=== PATIENT | male | born 1965 | race African-American/Black ===

== ENCOUNTER 2021-07-13 07:00 | Emergency (ER) | payer MEDICAID ==
[~2021-07-13] VITALS: Ht 175.3 cm; Wt 116.0 kg
[2021-07-13] MEDS ORDERED: HYDROCODONE/ACETAMINOPHEN 5/325MG TABLET PO ONE (09:15)
[2021-07-13] MEDS ORDERED: CYCL5TAB MT (09:18)
[2021-07-13 09:57] VITALS: BP 137/83
== END 2021-07-13 10:16 | disposition home or self-care (01) ==
LOC: ER 07:39
DX: M54.50 Low back pain, unspecified (principal); I10 Essential (primary) hypertension; Z87.19 Personal history of other diseases of the digestive system; Z98.890 Other specified postprocedural states
CPT/HCPCS: 99283